=== PATIENT | male | born 1995 | race Caucasian/White ===

== ENCOUNTER 2020-07-07 13:14 | Inpatient (IN) | payer OTHER ==
[~2020-07-07] VITALS: Ht 182.9 cm; Wt 73.9 kg
[2020-07-07 13:32] VITALS: BP 136/81
[2020-07-07 14:10] LABS: ABSOLUTE NEUTROPHILS 6.6 thou/uL (1.4-8.2); BASOPHILS 1.3 % (0.0-2.0); EOSINOPHILS 0.9 % (0.0-3.0); HEMATOCRIT 43.4 % (42.0-52.0); LYMPHOCYTES 29.2 % (24.0-44.0); MCH 32.5 pg (26.0-34.0); MCHC 34.6 g/dL (28.0-37.0); MONOCYTES 6.9 % (1.0-8.0); PLATELET COUNT 362 thou/uL (150-400); POLYS 61.7 % (36.0-66.0); RBC 4.62 mil/uL (4.50-6.00); RDW 13.4 % (10.5-14.5); WBC 10.7 thou/uL (4.0-11.0)
[2020-07-07 14:13] LABS: CALCIUM 10.8 mg/dL (8.5-10.1); CREATININE 1.5 mg/dL (0.7-1.3); POTASSIUM 3.4 mmol/L (3.5-5.1)
[2020-07-07 14:19] LABS: DIRECT BILIRUBIN 0.4 mg/dL (<0.1-0.2); TOTAL BILIRUBIN 2.2 mg/dL (0.2-1.0); TOTAL PROTEIN 8.7 g/dL (6.4-8.2)
[2020-07-07 15:12] LABS: URINE BILIRUBIN NEGATIVE (Negative); URINE BLOOD NEGATIVE (Negative); URINE CLARITY CLEAR; URINE COLOR YELLOW; URINE GLUCOSE-RANDOM* NEGATIVE (Negative); URINE KETONES 2+ (Negative); URINE LEUKOCYTES-REFLEX NEGATIVE (Negative); URINE NITRITE-REFLEX NEGATIVE (Negative); URINE PROTEIN (DIPSTICK) 2+ (Negative)
[2020-07-07 15:19] LABS: BACTERIA-REFLEX 1-9 Few /HPF (None Seen); MUCUS >6 Heavy strn/LPF (None Seen); SQUAMOUS None Seen /LPF (0-3); URINE RBC None Seen /HPF (NONE SEEN); URINE WBC-REFLEX 0-5 Rare /HPF (0-5)
[2020-07-07 15:20] LABS: CASTS None Seen /LPF (None Seen); CRYSTALS None Seen /LPF (None Seen)
[2020-07-07 15:21] LABS: AMP/METHAMP Negative (Negative); BARBITURATES Negative (Negative); BENZODIAZEPINES Negative (Negative); COCAINE Negative (Negative); METHADONE Negative (Negative); OPIATES Negative (Negative); PCP Negative (Negative)
[2020-07-07 15:46] LABS: SALICYLATE < 2.8 mg/dL (2.8-20.0)
[2020-07-07 18:08] VITALS: BP 126/75
[2020-07-07 18:17] VITALS: BP 126/75
[2020-07-07 18:30] VITALS: BP 106/56
[2020-07-07 19:00] LABS: ALBUMIN 5.2 g/dL (3.4-5.0); TOTAL PROTEIN 8.7 g/dL (6.4-8.2)
[2020-07-07 20:14] VITALS: BP 154/57
[2020-07-08] VITALS (7 sets, daily range): BP systolic 115–128; BP diastolic 60–71
[2020-07-08 04:33] LABS: HEMATOCRIT 37.3 % (42.0-52.0); MCH 32.4 pg (26.0-34.0); MCHC 33.5 g/dL (28.0-37.0); MCV 96.5 fL (80.0-100.0); RBC 3.86 mil/uL (4.50-6.00); RDW 13.7 % (10.5-14.5); WBC 8.9 thou/uL (4.0-11.0)
[2020-07-08 04:37] LABS: HEMOGLOBIN 12.5 gm/dL (14.0-18.0)
[2020-07-08 04:44] LABS: CALCIUM 8.3 mg/dL (8.5-10.1); MAGNESIUM 1.9 mg/dL (1.8-2.4); POTASSIUM 3.7 mmol/L (3.5-5.1)
--- NOTE | 2020-07-08 08:20 | EKG ---
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
[2020-07-08] MEDS ORDERED: PEPCID20 MG PO (13:31)
[2020-07-08] MEDS ORDERED: ZOFRAN ODT4 MG DISSOLVE (13:31)
[2020-07-08 13:38] LABS: TOTAL BILIRUBIN 1.6 mg/dL (0.2-1.0)
--- NOTE | 2020-07-08 13:44 | 2DMMODE ---
[facility] [place] [address] 2 D/M-MODE ECHOCARDIOGRAM Name: CHAU GONZALEZ Room #: 206-P ADM IN M.R.#: [id number] Admission: 07/07/20 Attend Phys: Norris Richter MD Discharge: Date of : [birth year] Report #: [id number] THIS REPORT FOR: cc: FAM - No family physician/PCP FAM - No family physician/PCP Donovan Uriarte MD ~ APPROVED REPORT Study performed: 07/08/2020 09:21:13 EXAM: Comprehensive 2D, Doppler, and color-flow Echocardiogram Patient Location: Bedside Room #: 206 Status: routine BSA: 1.95 HR: 49 bpm BP: 115/60 mmHg Rhythm: Bradycardia Other Information Study Quality: Good Indications Bradycardia 2D Dimensions RVDd: 43.72 mm IVSd: 8.57 (7-11mm) LVOT Diam: 22.29 (18-24mm) LVDd: 46.19 mm PWd: 9.15 (7-11mm) Ascending Ao: 26.31 (22-36mm) LVDs: 30.67 (25-40mm) Left Atrium: 36.73 (27-40mm) Aortic Root: 28.26 mm IVC: 23.00 mm Volumes Left Atrial Volume (Systole) Single Plane 4CH: 50.28 mL Single Plane 2CH: 58.69 mL LA ESV Index: 33.00 mL/m2 Aortic Valve AoV Peak Angus.: 1.43 m/s AO Peak Gr.: 8.22 mmHg LVOT Max P.23 mmHg LVOT Max V: 1.14 m/s DORIS Vmax: 3.11 cm2 [facility] [address] [place] [address] 2 D/M-MODE ECHOCARDIOGRAM Name: CHAU GOZNALEZ Prudence Room #: 206-P [facility]#: [id number] Admission: 07/07/20 Attend Phys: Norris Richter, Discharge: Date of : [birth year] Report #: [id number] Mitral Valve E/A Ratio: 2.3 MV Decel. Time: 255.16 ms MV E Max Angus.: 1.08 m/s MV A Angus.: 0.46 m/s MV PHT: 74.00 ms IVRT: 87.66 ms Pulmonary Valve PV Peak Angus.: 1.26 m/s PV Peak Gr.: 6.32 mmHg Pulmonary Vein P Vein S: 0.54 m/s P Vein A: 0.27 m/s P Vein D: 0.71 m/s P Vein A Dur.: 92.3 msec P Vein S/D Ratio: 0.76 Tricuspid Valve TR Peak Angus.: 2.49 m/s TR Peak Gr.: 24.86 mmHg PA Pressure: 35.00 mmHg Left Ventricle The left ventricle is normal size. There is normal LV segmental wall motion. There is normal left ventricular wall thickness. The left ventricular systolic function is normal. The left ventricular ejection fraction is within the normal range. LVEF is 55-60%. The left ventricular diastolic function is normal. Right Ventricle The right ventricle is normal size. The right ventricular systolic function is normal. Atria The left atrium size is normal. Right atrium is borderline dilated. Aortic Valve The aortic valve is normal in structure. No aortic regurgitation is present. There is no aortic valvular stenosis. Mitral Valve The mitral valve is normal in structure. There is no mitral valve regurgitation noted. No evidence of mitral valve stenosis. Tricuspid Valve [facility] [address] [place] [address] 2 D/M-MODE ECHOCARDIOGRAM Name: CHAU GONZALEZ Room #: 206-P [facility] IN M.R.#: [id number] Admission: 07/07/20 Attend Phys: Norris Richter, Discharge: Date of : [birth year] Report #: [id number] The tricuspid valve is normal in structure. There is mild tricuspid regurgitation. Estimated PAP 30 mmHg. Pulmonic Valve The pulmonary valve is normal in structure. There is no pulmonic valvular regurgitation. Great Vessels The aortic root is normal in size. IVC is dilated and collapses >50% with inspiration. Pericardium There is no pericardial effusion. <Conclusion> The left ventricle is normal size. There is normal left ventricular wall thickness. The left ventricular systolic function is normal. The right ventricular systolic function is normal. The left atrium size is normal. The aortic valve is normal in structure. There is no mitral valve regurgitation noted. There is mild tricuspid regurgitation. Estimated PAP 30 mmHg. <ELECTRONICALLY SIGNED> By: Donovan Uriarte MD 07/08/20 1344 1344 1344 Donovan Uriarte MD /INF
== END 2020-07-08 15:54 | disposition home or self-care (01) | DRG 683 ==
LOC: ER 13:14 → EROBS 17:08 → 2N 18:40
PROVIDERS: Nurse Practitioner; ADMIT Internal Medicine; ATTEND Internal Medicine
DX: N17.9 Acute kidney failure, unspecified (principal); E87.2 Acidosis; K21.9 Gastro-esophageal reflux disease without esophagitis; J45.909 Unspecified asthma, uncomplicated; E87.6 Hypokalemia; E80.6 Other disorders of bilirubin metabolism; Z88.6 Allergy status to analgesic agent; Z79.899 Other long term (current) drug therapy
CPT/HCPCS: 10081